=== PATIENT | male | born 2000 | race Two or more races ===

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

== ENCOUNTER 2019-01-22 20:04 | Emergency (ER) | payer MEDICAID ==
[2019-01-22 20:15] VITALS: BP 141/92
--- NOTE | 2019-01-22 20:27 | EDPHY ---
H & P Stated Complaint: bilat ear pain, throat pain and congestion since monday Time Seen by Provider: 01/22/19 20:18 HPI/ROS: CHIEF COMPLAINT: Otalgia x3 days HISTORY OF PRESENT ILLNESS: 18-year-old immunocompetent male complaining 3 days bilateral otalgia left greater than right, rhinorrhea. No otorrhea. No hearing loss. No foreign body insertion. No barotrauma. REVIEW OF SYSTEMS: 10 systems reviewed and negative with the exception of the elements mentioned in the history of present illness PAST MEDICAL & SURGICAL HISTORY: No pertinent medical or surgical history SOCIAL HISTORY:Nonsmoker. PHYSICAL EXAM (Prior to examination, patient consented to physical exam, hands were washed and my usual and customary physical exam procedures followed) 1) GENERAL: Well-developed, well-nourished, alert and oriented. Appears to be in no acute distress. 2) HEAD: Normocephalic, atraumatic 3) HEENT: Pupils equal, round, reactive to light bilaterally. Sclera anicteric. No injection. No discharge. No pain with extraocular movements. No periorbital erythema, induration, crepitus. Nasopharynx: Coryza. Oropharynx , clear, no lesions. No tonsillar enlargement or exudate.Moist Mucous membranes. Left ear: Erythematous bulging tympanic membrane with no signs of perforation. Right ear: Mild erythema with no bulging of the TM and no evidence of perforation. Bilateral mastoid nontender non boggy. 4) NECK: Full range of motion, no meningeal signs. 5) LUNGS: Clear auscultation bilaterally, no wheezes, no rhonchi, no retractions. 6) HEART: Regular rate and rhythm, no murmur, no heave, no gallop. 7) ABDOMEN: No guarding, no rebound, no focal tenderness, negative McBurney's, negative Arnold's, negative Rovsing's, negative peritoneal sign, 8) MUSCULOSKELETAL: Moving all extremities, no focal areas of tenderness, no obvious trauma. No peripheral edema or discoloration. 9) BACK: No CVA tenderness, no midline vertebral tenderness, no fluctuance, no step-off, no obvious trauma, no visual or palpable abnormality. 10) SKIN: No rash, no petechiae. 11) Psychiatric: Patient is oriented X 3, there is no agitation. DIFFERENTIAL DIAGNOSIS: In no particular order including but not limited to otitis media, otitis externa, otitis media with conjunctivitis. - Personal History Current Tetanus/Diphtheria Vaccine: Yes Current Tetanus Diphtheria and Acellular Pertussis (TDAP): Yes - Medical/Surgical History Hx Asthma: No Hx Chronic Respiratory Disease: No Hx Diabetes: No Hx Cardiac Disease: No Hx Renal Disease: No Hx Cirrhosis: No Hx Alcoholism: No Hx HIV/AIDS: No Hx Splenectomy or Spleen Trauma: No Other PMH: "INTESTINES TWISTED A BABY" - Social History Smoking Status: Never smoked Constitutional: Initial Vital Signs Temperature (C) 37.2 C 01/22/19 20:13 Heart Rate 77 01/22/19 20:13 Respiratory Rate 18 01/22/19 20:13 Blood Pressure 141/92 H 01/22/19 20:13 O2 Sat (%) 96 01/22/19 20:13 O2 Delivery Mode Room Air Allergies/Adverse Reactions: No Known Allergies Allergy (Verified 01/22/19 20:15) Home Medications: Medication Instructions Recorded Amoxicillin Trihydrate 500 mg PO Q8 7 Days cap 01/22/19 [Amoxicillin 500mg cap] Medical Decision Making ED Course/Re-evaluation: 8:26 p.m.: Patient has evidence of otitis media without perforation, without conjunctivitis. Plan will be discharged with oral antibiotics, Tylenol, Motrin , close follow-up with PCP. Usual and customary discharge precautions instructions provided. Care of patient under supervision of secondary supervising physician Dr Travon Chao Departure - Departure Disposition: Home, Routine, Self-Care Clinical Impression: Left otitis media Qualifiers: Otitis media type: unspecified Qualified Code(s): H66.92 - Otitis media, unspecified, left ear Condition: Good Instructions: Ear Infection (ED) Additional Instructions: Return to emergency department if you develop new or worsening pain, if you develop ear drainage, hearing loss or any other symptoms that concern you. Adult Pain & Fever Control: We recommend Acetaminophen (Tylenol) and Ibuprofen (Motrin,Advil) for pain and fever control. When fever is high or pain severe, both drugs can be used at the same time, but at different intervals. Please note the time differences. Your dose is: Acetaminophen 650mg every 4 to 6 hours Ibuprofen 600mg every 6 hours with food OR Note: do not take Acetaminophen with Hydrocodone (Vicodin, Lortab) or Oycodone (Percocet). These medications also contain Acetaminophen. No more than 3000mg of Acetaminophen should be taken in 24 hours (for an adult). Referrals: [facility],. [Clinic] - 2-3 days, call for appt. Stand Alone Forms: School Excuse, Work Excuse Prescriptions: Amoxicillin Trihydrate [Amoxicillin 500mg cap] 500 mg PO Q8 7 Days cap
== END 2019-01-22 20:46 | disposition home or self-care (01) ==
DX: H66.92 Otitis media, unspecified, left ear (principal)